=== PATIENT | male | born 1990 | race Hispanic/Latino ===

== ENCOUNTER 2017-02-10 19:19 | Emergency (ER) | payer OTHER ==
[2017-02-10 19:38] VITALS: BP 150/92; PULSE 88; RESP 16; TEMP 99; O2SAT 98
[2017-02-10] MEDS ORDERED: Oxycodone/Acetaminophen 5/325 mg Tab PO STA (19:43)
[2017-02-10] MEDS ORDERED: Oxycodone/Acetaminophen 5/325 mg Tab ONE (19:58)
--- NOTE | 2017-02-10 20:09 | ED PDOC ---
Upper Extremity Pain/Injury Time Seen by Provider: 02/10/17 19:40 Chief Complaint (Nursing): Finger,Hand,&Wrist Chief Complaint (Provider): wrist injury History Per: Patient History/Exam Limitations: no limitations Additional Complaint(s): 26yo M in ED for eval of injury sustained to left wrist from a FOOSH injury. mild tingling to DIP. right hand dominant. swelling and deformity noted pain . Past Medical History Reviewed: Historical Data, Nursing Documentation, Vital Signs Vital Signs: Last Vital Signs Temp 99 F 02/10/17 19:34 Pulse 88 02/10/17 19:34 Resp 16 02/10/17 19:34 BP 150/92 H 02/10/17 19:34 Pulse Ox 98 02/10/17 19:34 - Medical History PMH: No Chronic Diseases - Surgical History Surgical History: Tonsillectomy - Family History Family History: States: Unknown Family Hx - Home Medications Home Medications: Ambulatory Orders Medication Instructions Recorded Tramadol HCl [Ultram] 50 mg PO Q6 #15 tab 02/10/17 - Allergies Allergies/Adverse Reactions: Allergies Allergy/AdvReac Type Severity Reaction Status Date / Time No Known Allergies Allergy Verified 08/16/15 03:11 Review of Systems ROS Statement: Except As Marked, All Systems Reviewed And Found Negative Musculoskeletal: Positive for: Hand Pain Physical Exam - Reviewed Nursing Documentation Reviewed: Yes Vital Signs Reviewed: Yes - Physical Exam Appears: Positive for: Non-toxic, No Acute Distress, Uncomfortable Skin: Positive for: Normal Color, Warm, DRY Cardiovascular/Chest: Positive for: Regular Rate, Rhythm Respiratory: Positive for: CNT, Normal Breath Sounds Extremity: Positive for: Other (left wrist: (+) deformity , nuerovasc intact swelling noted FROM of digits not of wrist, skin intact. elbow : no pain) Neurologic/Psych: Positive for: Alert, Oriented - ECG O2 Sat by Pulse Oximetry: 98 - Radiology X-Ray: Interpreted by Me (fx-displaced and communited distal radius fracture. ) Medical Decision Making Medical Decision Making: MD bina-consulted 22:09- wants to admit pt for surgical intervention in the AM , however pt is opting to forego this option, follow up his his orthopedic and get surgery then. Pt therefore placed in a sugar tong splint, given ultram for acute pain and advised to f/u with ortho [facility]. Orders Category Date Time Status oxyCODONE/Acetaminophen [Percocet 5/325 mg Tab] Med 02/10/17 19:58 Discontinued 1 tab .ROUTE .STK-MED ONE oxyCODONE/Acetaminophen [Percocet 5/325 mg Tab] Med 02/10/17 19:43 Stat 1 tab PO STAT STA WRIST, LEFT 3 VIEWS [RAD] Stat Radiology 02/10/17 19:41 Ordered Disposition - Clinical Impression Clinical Impression: Radius fracture - Patient ED Disposition Is Patient to be Admitted: No Counseled Patient/Family Regarding: Studies Performed, Diagnosis, Need For Followup, Rx Given - Disposition Referrals: Odilon De Luna MD [Medical Doctor] - Disposition: Routine/Home Disposition Time: 20:38 Condition: STABLE Prescriptions: Tramadol HCl [Ultram] 50 mg PO Q6 #15 tab Instructions: ORIF of a Wrist Fracture (GEN), Wrist Fracture in Adults (ED) Forms: [facility] ED School/Work Excuse
--- NOTE | 2017-02-11 08:37 | RAD ---
PROCEDURE: Left Wrist Radiographs. HISTORY: injury COMPARISON: None. FINDINGS: BONES: There is a transverses irregular fracture through the distal metaphysis of the left radius compatible Colles fracture. No dislocation is associated. Impacted and dorsally angulation is identified. Limited local soft tissue edema related. JOINTS: Normal. No dislocation. OTHER FINDINGS: None. IMPRESSION: Colles fracture distal left radius. No dislocation.
== END 2017-02-10 21:00 | disposition home or self-care (01) ==
LOC: H.ER 19:19
DX: S52.92XA Unspecified fracture of left forearm, initial encounter for closed fracture (principal); W19.XXXA Unspecified fall, initial encounter